=== PATIENT | female | born 1990 | race Caucasian/White ===

== ENCOUNTER 2017-03-28 07:38 | Emergency (ER) | payer OTHER ==
[~2017-03-28] VITALS: Ht 154.9 cm; Wt 74.5 kg
[~2017-03-28 07:38] MED LIST: CALC-881 PO; CETI10TA; DOCO200C5 PO
[2017-03-28 07:39] VITALS: BP 103/69; PULSE 66; RESP 16; O2SAT 99
--- NOTE | 2017-03-28 07:54 | ED.REPORT ---
HPI- Female Date of Service Mar 28, 2017 ED Provider: Kvng Black MD Patient is a 26 year old, 8 week female () who presents to the ED with vaginal bleeding that began 1 hour prior to arrival. She describes a large amount of bright red, mucousy blood with clotting present. Patient has had 2 previous miscarriages. Her previous miscarriages have been within the first 10 weeks of and her current symptoms feel similar to her previous miscarriages. Patient is Rh negative and has previously received RhoGAM. She also reports associated lower abdominal cramping and nausea. Her last menstrual cycle way 01/28/2017. Nursing Notes Stated Complaint: BLEEDING/ 8 WKS Chief Complaint: & Delivery Nursing Notes Reviewed: Yes Allergies: Coded Allergies: diphenhydramine HCl (Verified Allergy, Intermediate, Hives, 03/18/13) latex (Verified Allergy, Intermediate, Rash,Itching,SOB, 03/18/13) Uncoded Allergies: mustard (Allergy, Intermediate, 03/18/13) tongue swells Scheduled PRN Hydrocodone-Acetaminophen 5-325 mg (Hydrocodone-Acetaminophen 5-325 mg) 1 Each Tablet 1 TABLET PO Q4H PRN PRN For Pain Miscellaneous Medications Cipriano Carb/Vitamin D3-Expunged, Do Not Renew! (Cipriano Carb/Vitamin D3-Expunged, Do Not Renew!) 1 Each Tablet.er 1 EACH PO Cetirizine-Expunged Drug, Do Not Renew! (Cetirizine-Expunged Drug, Do Not Renew! ) 10 Mg Tablet DOCOSAHEXANOIC ACID-Expunged Drug, Do Not Jace ( DHA-Expunged Drug, Do Not Renew!) 200 Mg Capsule 200 MG PO General Time Seen by MD: 07:48 Chief Complaint Vaginal bleeding... Hx Obtained From: Patient Arrived By: Walk-in Sudden in Onset?: No Context of Onset: , 1st trimester Symptom Duration: Since onset Location: : Abdomen lower Quality: Cramping Radiation: Does not radiate Severity: Current: Moderate Severity: Maximum: Moderate Associated with: Reports: Abdominal pain, Nausea Pertinent Negative: Pt denies other symptoms Status: test pending : 5 Para: 2 RH Status / Blood Type: Rh Negative Recent Healthcare: No recent doctor visit, No recent hospitalization Past Medical History Past Medical History Notes: HAND PATTERN MARKER: Dr. Nathalie DUARTE Past Medical History Rh negative Past Surgical History None reported. Smoking History Unknown if Ever Smoker Social History Other Social History: Good social support, Local resident Ambulatory Status Independent Review of Systems GI: Reports: Abdominal pain (cramping), Nausea Female: Reports: (8 weeks), Vaginal bleeding - abnl Complete sys rev & neg: except as marked. Physical Exam Initial Vital Signs Vital Signs (First) Date Time Temp Pulse Resp B/P Pulse Ox O2 Delivery O2 Flow Rate FiO2 03/28/17 07:39 36.5 66 16 103/69 99 Room Air Initial VS: Reviewed Neck: Supple, Non-tender, Full range of motion Extremities: Vascular intact, Neuro intact, No swelling, No tenderness Psychiatric: Mood/affect normal, Behavior normal, Normal thought content Female Genitourinary: Supply Analyst present, Atraumatic Vaginal Bleeding / Discharge: Positive: Bleeding moderate, Clots present FEMALE : Large amount of blood and clots present in the vaginal vault Cervix is mildly dilated General/Constitutional: Awake, Alert, No acute distress Respiratory / Chest: Atraumatic, Breath sounds NL, Breath sounds = bilat, No respiratory distress Cardiovascular: Heart rate NL, Regular rhythm, Heart sounds NL, No gallop, No murmurs, No rubs Abdomen: Atraumatic, Soft, Non-tender, No guarding, No rebound, No distention Skin: Atraumatic, Color NL, No rash, Warm, Dry, Intact Head / Eyes: Atraumatic, Normocephalic, PERRL Neurologic: Oriented X3, Speech NL, No motor deficits, No sensory deficits, CN II - XII intact, Reflexes equal bilat Interpretation & Diagnostics Lab Results Interpretation Result Diagram: 03/28/17 0755 03/28/17 0755 Test 03/28/17 07:55 White Blood Count 5.6th/mm3 (3.8-10.1) Red Blood Count 4.67mil/mm3 (3.90-5.20) Hemoglobin 14.0g/dL (12.0-15.6) Hematocrit 40.4% (35.0-46.0) Mean Corpuscular Volume 86.5fL (81-100) Mean Corpuscular Hemoglobin 30.0pg (27.0-35.0) Mean Corpuscular Hemoglobin Concent 34.7% (32.0-37.0) Red Cell Distribution Width 12.9% (12.3-15.4) Platelet Count 297bil/L (150-400) Sodium Level 138mEq/L (134-144) Potassium Level 3.7mEq/L (3.5-5.2) Chloride Level 102mEq/L (97-108) Carbon Dioxide Level 21mmol/L (18-29) Blood Urea Nitrogen 10mg/dL (6-20) Creatinine 0.58mg/dL (0.57-1.00) Estimat Glomerular Filtration Rate 179mL/min (>59) Glucose Level 105mg/dL (60-99) Calcium Level 9.1mg/dL (8.5-10.1) Total Bilirubin 0.4mg/dL (0.0-1.2) Aspartate Amino Transf (AST/SGOT) 18U/L (0-50) Alanine Aminotransferase (ALT/SGPT) 20U/L (0-32) Alkaline Phosphatase 59U/L (25-150) Total Protein 7.0g/dL (6.4-8.4) Albumin 4.2g/dL (3.4-5.0) HCG Beta Subunit 2321mIU/mL US Focused OB IMPRESSION: Gestational sac measured at 5 weeks No pole identified. No free fluid Exam Interpreted by: Radiologist Indication: Vaginal bleeding Re-Eval/Medical Decision Med Decision/Clinical Course Patient is a 26 year old, 8 week female () who presents to the ED with vaginal bleeding that began 1 hour prior to arrival. She describes a large amount of bright red, mucousy blood with clotting present. Patient has had 2 previous miscarriages. Her previous miscarriages have been within the first 10 weeks of and her current symptoms feel similar to her previous miscarriages. Patient is Rh negative and has previously received RhoGAM. She also reports associated lower abdominal cramping and nausea. Her last menstrual cycle way 01/28/2017. Here in the emergency department the patient is afebrile with stable vital signs and examination as above. Of note she has copious blood in the vaginal vault with slightly open cervix. The patient received the below medications with good effect: RhoGAM hydromorphone Zofran IV fluids Labs No leukocytosis Hct 40 HGC 2321 IMPRESSION: Gestational sac measured at 5 weeks No pole identified. No free fluid Patient was discussed with her HAND PATTERN MARKER on-call. The patient felt to be consistent with an apical versus threatened . Patient passed additional clot of blood material here in the emergency department though she remained hemodynamically stable. Based on discussion with HAND PATTERN MARKER presentation felt not to be consistent with ectopic . They do not feel that she requires admission or further emergent workup. Patient has been managed expectantly for her previous abortions and would like to go home. Her HAND PATTERN MARKER will make sure that she gets follow-up on Thursday. She is advised to return to the emergency room immediately if she develops worsening bleeding, lightheadedness, if she is soaking through more than 1 pad an hour. Prior to discharge follow-up and return precautions were reviewed in detail with the patient who verbalized understanding and agreement with the plan. The patient was discharged in stable condition. Re-Evaluation/Progress #1: Time of Eval: 10:09 Re-Evaluation/Progress Note: Pt is informed of her US results. She reports another large amount of blood passed. All of the pateint's current questions are addressed. Re-Evaluation/Progress #2: Time of Eval: 11:08 Patient Status: Condition improved Re-Evaluation/Progress Note: Discussed intended treatment plan and the consult results with her HAND PATTERN MARKER. She agrees to follow up with her OB on Thursday. Consultation : Call Returned at: 11:03 Mechanical Intern: Will see patient, Agrees with eval, Agrees with plan Note: HAND PATTERN MARKER- Dr. Silver's Office Counseled Regarding: Diagnosis, Lab results, Need for follow-up, When/why to return to ED Discharge & Departure Impression: Primary Impression: Inevitable Additional Impressions: Vaginal bleeding Abdominal cramping History of miscarriage Disposition: Home Discharge Condition All VS Reviewed: Yes Condition: Improved Patient Instructions: Threatened Miscarriage (ED) Additional Instructions: Thank you for seeking care at emergency room. Our primary goal today in the ED was to evaluate you for any life-threatening conditions and your evaluation was reassuring. It is difficult for us to make definitive diagnoses in the ED but we believe that you are experiencing a miscarriage. I am very sorry for your loss. You will be discharged with a prescription for [place] . Please take 1-2 Corinth every 8 hours as needed for pain. You should follow-up with your HAND PATTERN MARKER on Thursday to have an ultrasound performed. You should return to the ED immediately if you develop worsening vaginal bleeding (>1 pad per hour) lightheadedness, weakness, headache, nausea, vomiting , fevers, chills or any other concerning signs or symptoms. Thank you for letting us partake in your care today. You have been prescribed a narcotic for pain relief. These drugs are usually combined with acetaminophen (Tylenol#3, Percocet, Darvocet, Anexsia, Vicodin) or aspirin (Empirin#3, Percodan, Synalogs-DC) for increased effect. Narcotics act on the central nervous system to reduce pain; they also impair mental alertness and physical abilities. We advise you not to drink alcohol, drive a car, or operate dangerous equipment when you are taking theses drugs. You can lessen stomach irritation from your medicine by taking it with meals or a full glass of water. Common side effects of narcotics are: Nausea and vomiting, heartburn, constipation, dizziness, sleepiness, and mood changes. If you have bothersome side effects or symptoms of an allergic reaction (itching, hives, rash), stop taking your medicine and call your doctor or the emergency room right away. Please keep your narcotic medicine well out of the reach of children. Referrals: OTHER,PHYSICIAN (PCP) (Family) Scribe Attestation Portions of this note were transcribed by Samara Giang. I, Dr. Black personally performed the history, physical exam and medical decision-making; I reviewed and confirmed the accuracy of the information in the transcribed note. Signed by: Gabe Chapin, 03/28/17 1112. Kvng Black MD Mar 28, 2017 07:54 SAMARA GIANG Mar 28, 2017 08:01
[2017-03-28] MEDS ORDERED: 0.9% Sodium Chloride 1,000 ML IV ONE ×2 (08:02→08:16)
[2017-03-28] MEDS ORDERED: Ondansetron 2 mg/mL 2 mL Inj IVPUSH PRN (08:20)
[2017-03-28 08:24] LABS: Mean Corpuscular Volume 86.5 fL (81-100)
[2017-03-28] MEDS: HYDROmorphone 0.5 mg/0.5 mL iSecure Syringe IVPUSH PRN ×2 (08:36→10:28)
[2017-03-28 10:27] VITALS: BP 136/92; PULSE 71; RESP 22; O2SAT 97
[2017-03-28] MEDS ORDERED: HYDR-4003 PO (11:02)
[2017-03-28 11:33] VITALS: BP 136/92; PULSE 71; RESP 22; O2SAT 97
--- NOTE | 2017-03-28 12:16 | DRSVH ---
+/- 7 days from 14 weeks to 15 weeks 6 days gestation, +/- 10 days from 16 weeks to 21 weeks 6 days g estation, +/- 2 weeks from 22 weeks to 27 weeks 6 days gestation, +/- 3 weeks for 28 weeks gestation or later. PROCEDURE: US OB<14 WKS INDICATIONS: preg, vag bleed OUTSIDE/PRIOR DATING DATA: Last menstrual period (LMP): 01/28/2017. LMP-based estimated date of delivery (MARIE): 11/04/2017. First dating scan (date and location): 03/28/2017 at [facility]. Estimated date of delivery (MARIE) from first dating scan: 11/26/2017 TECHNIQUE: Real-time scanning was performed of the fetus and maternal pelvic organs, with image documentation. Endovaginal scanning was also performed to better visualize the fetus and maternal ovaries. COMPARISON: None. 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 Rump Length: 1.90 mm Gestational Age (CRL): - Summary Fetus Summary Heart Rate: n.a Comments: No pole is identified. A normal yolk sac is noted. There is a small perigestational bleed measuring 1.9 x 0.9 symmetr. Cervix is closed. Measurement variability in dating: +/- 4 weeks by LMP, +/- 7 days by mean sac diameter (use before 6 weeks gestation if crown-rump length not able to be measured), +/- 5 days by crown-rump length (up t o 8 weeks 6 days gestation), +/- 7 days by crown-rump length (from 9 weeks to 13 weeks 6 days gestati on). Maternal organs: Ovaries are grossly normal. Limited images through the kidneys demonstrate no hydr onephrosis. IMPRESSION: 1. There is an intrauterine gestational sac corresponding to 5 weeks 2 days for gestational age. Ther e is a yolk sac. pole and cardiac activity are not identified. The ultrasound dating is d iscordant with clinical dating based on the LMP. Recommend clinical correlation and followup. Dictated by: Sam Olivares M.D. on 03/28/2017 at 12:05 Approved by: Sam Olivares M.D. on 03/28/2017 at 12:14
== END 2017-03-28 11:25 | disposition home or self-care (01) ==
LOC: SED 07:38
DX: O03.9 Complete or unspecified spontaneous abortion without complication (principal); R10.9 Unspecified abdominal pain; Z88.8 Allergy status to other drugs, medicaments and biological substances; Z91.040 Latex allergy status
CPT/HCPCS: 36415; 76830; 76856; 80053; 84702; 85027; 96374; 96375; 99285; J1170; J2405; J2790; J7030